=== PATIENT | male | born 1945 | race Caucasian/White ===

== ENCOUNTER 2018-07-24 15:13 | Emergency (ER) | payer SELFPAY ==
[~2018-07-24] VITALS: Ht 185.4 cm; Wt 136.1 kg
[2018-07-24 15:49] LABS: BASOPHILS # (AUTO) 0.1 K/uL (0.0-8.0); BASOPHILS % (AUTO) 1.1 % (0.0-2.0); EOSINOPHILS # (AUTO) 0.4 K/uL (0.0-0.7); EOSINOPHILS % (AUTO) 5.1 % (0.0-7.0); HEMATOCRIT 27.1 % (36.7-47.1); HEMOGLOBIN 8.5 g/dL (12.5-16.3); LYMPHOCYTES % (AUTO) 11.2 % (20.5-51.5); MEAN CORPUSCULAR HEMOGLOBIN 22.8 uug (23.8-33.4); MEAN CORPUSCULAR HGB CONC 31 g/dL (32.5-36.3); MEAN CORPUSCULAR VOLUME 72.5 fL (73.0-96.2); MONOCYTES # (AUTO) 0.5 K/uL (2.0-10.0); MONOCYTES % (AUTO) 5.6 % (0.0-11.0); NEUTROPHILS # (AUTO) 6.8 K/uL (1.8-8.9); PLATELET COUNT (AUTO) 442 K/uL (152-348); RED BLOOD CELL COUNT(AUTO) 3.73 MIL/uL (4.06-5.63); WHITE BLOOD COUNT (AUTO) 8.8 K/uL (3.6-10.2)
[2018-07-24 15:57] LABS: CREATININE 1.3 mg/dL (0.6-1.3); POTASSIUM 3.6 mmol/L (3.5-5.1)
[2018-07-24 16:02] LABS: BILIRUBIN,DIRECT 0.1 mg/dL (0.0-0.2); BILIRUBIN,TOTAL 0.9 mg/dL (0.2-1.0); TOTAL PROTEIN, SERUM 7.5 g/dL (6.4-8.2)
[2018-07-24] MEDS ORDERED: PANTOPRAZOLE SODIUM IV 80 MG in IV DEXTROSE 5% 500 ML IV ONE (16:30)
[2018-07-24] MEDS ORDERED: PANTOPRAZOLE SODIUM IV 80 MG in IV DEXTROSE 5% 100 ML IV ONE (16:30)
[2018-07-24] MEDS ORDERED: PANTOPRAZOLE SODIUM 40 MG VIAL ONE (16:33)
--- NOTE | 2018-07-24 16:41 | NUR ---
Patient does not wish to proceed with medical care recommended by ( ADILSON ). Patient given information related to possible complications, up to and including , which could occur as a result of leaving the hospital at this time. Patient verbalizes understanding of risks involved due to leaving against medical advice. Patient has signed AMA form.
== END 2018-07-24 16:46 | disposition left against medical advice (07) ==
LOC: ER 15:14
DX: K92.2 Gastrointestinal hemorrhage, unspecified (principal); R55 Syncope and collapse; D64.9 Anemia, unspecified
CPT/HCPCS: 36415; 70030-TC; 71045; 85025; 93005; 93307; A4663; C9113

== ENCOUNTER 2020-04-25 16:48 | Inpatient (IN) | payer MEDICAID, OTHER ==
[~2020-04-25] VITALS: Ht 185.4 cm; Wt 135.7 kg
[2020-04-25] MEDS ORDERED: ACETAMINOPHEN ES 500 MG TABLET PO ONE ×2 (17:15→19:45)
[2020-04-25] MEDS ORDERED: IBUPROFEN 800 MG TABLET PO ONE (17:15)
[2020-04-25] MEDS ORDERED: VANCOMYCIN IV 2,000 MG in IV DEXTROSE 5% 250 ML IV ONE (17:15)
[2020-04-25] MEDS ORDERED: PIPERACILLIN SODIUM/TAZOBACTAM 3.375 G in IV DEXTROSE 5% 50 ML IV ONE (17:15)
--- NOTE | 2020-04-25 17:15 | NUR ---
Pt BIB [facility], c/o weakness and dizziness since yesterday, report pt slipped out of bed this AM, no trauma, but pt feels more weak currently. was able to stand on own when RA picked him up. Pt Hx of Colon Ca, receives chemo, and HTN. Pt c/o weakness and dizziness, A&O x 4. Pt denies CP, SOB, and n/v also denies coughing or feeling sick before yesterday, no other complaints, no distress noted.
[2020-04-25] MEDS ORDERED: LISI2.5T2 PO (17:17)
[2020-04-25] MEDS ORDERED: MAGN400C PO (17:17)
[2020-04-25] MEDS ORDERED: CLOTRIMAZOLE 1% CREAM 30 GM TUBE TOP SCH (17:30)
[2020-04-25 17:45] LABS: ABG HCO3 22.8 mmol/L; ABG PCO2 31.8 mmHg (35.0-45.0); ABG PH 7.474 (7.350-7.450); ABG PO2 71.5 mmHg (75.0-100.0); ABG SITE RIGHT RADIAL; ABG TOTAL HEMOGLOBIN 12.7 G/dL (13.5-18.0); MetHb 0.1 % (0.0-1.5); VENT MODE Nasal Cannula
[2020-04-25] MEDS ORDERED: IBUPROFEN 800 MG TABLET ONE (18:06)
[2020-04-25] MEDS ORDERED: ACETAMINOPHEN ES 500 MG TABLET ONE (18:06)
[2020-04-25] MEDS ORDERED: VANCOMYCIN IV 400 ML ONE (18:07)
[2020-04-25] MEDS ORDERED: PIPERACILLIN/TAZOBACTAM/D5W 50 ML IV ONE (18:07)
[2020-04-25] MEDS ORDERED: levoFLOXacin 750 MG/D5W 150 ML PIGGYBACK IV ONE (18:15)
[2020-04-25 18:17] LABS: CREATININE 1.3 mg/dL (0.6-1.3); POTASSIUM 3.8 mmol/L (3.5-5.1)
[2020-04-25 18:18] LABS: BASOPHILS % (AUTO) 0.1 % (0.0-2.0); EOSINOPHILS % (AUTO) 0.2 % (0.0-7.0); HEMATOCRIT 37.2 % (36.7-47.1); HEMOGLOBIN 12.3 g/dL (12.5-16.3); LYMPHOCYTES # (AUTO) 0.2 K/uL (20.0-40.0); LYMPHOCYTES % (AUTO) 1.3 % (20.5-51.5); MEAN CORPUSCULAR HEMOGLOBIN 32.2 uug (23.8-33.4); MEAN CORPUSCULAR HGB CONC 33 g/dL (32.5-36.3); MEAN CORPUSCULAR VOLUME 97.3 fL (73.0-96.2); MONOCYTES # (AUTO) 0.2 K/uL (2.0-10.0); MONOCYTES % (AUTO) 1.4 % (0.0-11.0); NEUTROPHILS # (AUTO) 13.8 K/uL (1.8-8.9); PLATELET COUNT (AUTO) 272 K/uL (152-348); RED BLOOD CELL COUNT(AUTO) 3.82 MIL/uL (4.06-5.63); WHITE BLOOD COUNT (AUTO) 14.3 K/uL (3.6-10.2)
[2020-04-25 18:31] LABS: THYROID STIMULATING HORMONE 1.344 mIU/mL (0.358-3.740)
[2020-04-25 18:34] LABS: BILIRUBIN,DIRECT 0.3 mg/dL (0.0-0.2); BILIRUBIN,TOTAL 1.9 mg/dL (0.2-1.0); MAGNESIUM 1.6 mg/dL (1.8-2.4); PHOSPHOROUS 1.5 mg/dL (2.5-4.9); TOTAL PROTEIN, SERUM 7.3 g/dL (6.4-8.2)
[2020-04-25 18:35] LABS: BILIRUBIN,DIRECT 0.3 mg/dL (0.0-0.2); BILIRUBIN,TOTAL 1.8 mg/dL (0.2-1.0); TOTAL PROTEIN, SERUM 7.4 g/dL (6.4-8.2)
--- NOTE | 2020-04-25 19:15 | NUR ---
In and out cath not necessary. pt urinated in urinal
[2020-04-25 19:36] LABS: *BILIRUBIN,URIN NEGATIVE (NEGATIVE); *BLOOD, URINE 2+ (NEGATIVE); *CLARITY,URINE SLIGHTLY CLOUDY (CLEAR); *COLOR,URINE YELLOW (YELLOW); *KETONES,URINE TRACE (NEGATIVE); LEUKOCYTE ESTERASE ,URINE TRACE (NEGATIVE); NITRITE, URINE NEGATIVE (NEGATIVE); PH,URINE 8.5 (5.0-8.0); UGLUCOSE NEGATIVE (NEGATIVE)
[2020-04-25 19:48] LABS: RBC,URINE 20-50 /HPF (0-3)
[2020-04-25 19:49] LABS: BACTERIA,URINE NONE SEEN /HPF (NONE SEEN); RED BLOOD CELL CASTS,URINE FEW /LPF (NONE SEEN); SQUAMOUS EPITHELIAL CELL,UR FEW /HPF (NONE SEEN)
[2020-04-25] MEDS ORDERED: levoFLOXacin 750MG/D5W 150 ML IV ONE (19:55)
[2020-04-25] MEDS ORDERED: IV NORMAL SALINE 500 ML IV ONE ×2 (20:00→22:15)
[2020-04-25] MEDS ORDERED: KETOCONAZOLE 2% TOP (20:13)
[2020-04-25] MEDS ORDERED: TBO-480S SQ (20:13)
[2020-04-25] MEDS ORDERED: triamcinolon TOP (20:13)
[2020-04-25] MEDS ORDERED: LISI10TA5 PO (20:13)
--- NOTE | 2020-04-25 20:44 | NUR ---
Dr. Hernandez on panel call with Rose Mary Gil NP
[2020-04-25] MEDS ORDERED: NEUTRA PHOS PACKET PO ONE (21:00)
[2020-04-25] MEDS ORDERED: ACETAMINOPHEN 325 MG TABLET PO PRN (21:00)
--- NOTE | 2020-04-25 21:14 | NUR ---
Received call from Patient's son, left phone number .
[2020-04-25] MEDS ORDERED: IV NORMAL SALINE 250 ML IV ONE (21:40)
[2020-04-25] MEDS ORDERED: IOHEXOL 350 100 ML INFUS..BTL ONE (21:40)
[2020-04-25] MEDS ORDERED: SWABABLE VALVE TRANSFER SET EA MC ONE (21:40)
--- NOTE | 2020-04-25 21:51 | NUR ---
pt out of ER for CT
--- NOTE | 2020-04-25 21:51 | NUR ---
report given to CAROLINA West
--- NOTE | 2020-04-25 22:20 | NUR ---
pt back from CT
--- NOTE | 2020-04-25 23:15 | NUR ---
Pt. admitted to [facility] , under care of HEMANT Gil Belongs List completed. All belongings with pt aa/ox4. able to speak in complete sentences no s/s of distress transported pt via gurney
[2020-04-25 23:34] VITALS: BP 89/48
--- NOTE | 2020-04-25 23:34 | NUR ---
ADMITTED FROM ER VIA [facility] W/ ADM. DX. OF SEVERE SEPSIS. PT IS ALERT & ORIENTED X4. HEP LOCK INTACT ON LAC. IVF INFUSING ON R HAND. HEP. LOCK INTACT & PATENT ON RENÉE. C-SCOPE SR W/ FREQ. PVCS. REPOSITIONED W/ HOB ELEVATED.
[2020-04-26] MEDS: IV NS 1000 ML 1,000 ML IV PRN ×2 (00:08→19:59)
[2020-04-26] MEDS: MAGNESIUM SULFATE/D5W 100 ML IV SCH ×2 (00:14→01:17)
[2020-04-26] MEDS ORDERED: PIPERACILLIN SODIUM/TAZO 3.375 GM VIAL ONE (01:00)
[2020-04-26] MEDS ORDERED: NEUTRA PHOS PACKET ONE ×2 (01:15→01:22)
[2020-04-26] MEDS ORDERED: PIPERACILLIN SODIUM/TAZOBACTAM 3.375 G in IV DEXTROSE 5% 50 ML IV SCH ×2 (02:00→10:00)
--- NOTE | 2020-04-26 03:00 | NUR ---
INSERTED LEWIS FR. # 16 W/O DIFFICULTY W/ CLEAR RAMILA URINE.
[2020-04-26 04:11] VITALS: BP 112/67
[2020-04-26 04:44] LABS: BASOPHILS % (AUTO) 0.1 % (0.0-2.0); HEMATOCRIT 33.5 % (36.7-47.1); HEMOGLOBIN 11.3 g/dL (12.5-16.3); LYMPHOCYTES # (AUTO) 0.4 K/uL (20.0-40.0); LYMPHOCYTES % (AUTO) 1.4 % (20.5-51.5); MEAN CORPUSCULAR HEMOGLOBIN 32.8 uug (23.8-33.4); MEAN CORPUSCULAR HGB CONC 34 g/dL (32.5-36.3); MEAN CORPUSCULAR VOLUME 96.9 fL (73.0-96.2); MONOCYTES # (AUTO) 1.1 K/uL (2.0-10.0); MONOCYTES % (AUTO) 4.6 % (0.0-11.0); NEUTROPHILS # (AUTO) 23.5 K/uL (1.8-8.9); NEUTROPHILS % (AUTO) 93.9 % (38.5-71.5); PLATELET COUNT (AUTO) 225 K/uL (152-348); RED BLOOD CELL COUNT(AUTO) 3.46 MIL/uL (4.06-5.63)
[2020-04-26 04:46] LABS: CARBON DIOXIDE 24 mmol/L (21-32); CHLORIDE 104 mmol/L (98-107); CREATININE 1.7 mg/dL (0.6-1.3); GLUCOSE 126 mg/dL (74-106); POTASSIUM 4.1 mmol/L (3.5-5.1); UREA NITROGEN, BLOOD 23 mg/dL (7-18)
[2020-04-26 04:53] LABS: ALANINE AMINOTRANSFERASE 8 U/L (16-63); ALKALINE PHOSPHATASE 95 U/L (50-136); ASPARTATE AMINOTRANSFERASE 21 U/L (15-37); BILIRUBIN,DIRECT 0.2 mg/dL (0.0-0.2); BILIRUBIN,TOTAL 1.9 mg/dL (0.2-1.0); CHOLESTEROL 87 mg/dL (<200); HDL CHOLESTEROL 46 mg/dL (40-60); MAGNESIUM 2.2 mg/dL (1.8-2.4); PHOSPHOROUS 2.8 mg/dL (2.5-4.9); TOTAL PROTEIN, SERUM 6.2 g/dL (6.4-8.2); TRIGLYCERIDES 34 MG/DL (30-150)
[2020-04-26 05:00] LABS: THYROID STIMULATING HORMONE 0.864 mIU/mL (0.358-3.740)
--- NOTE | 2020-04-26 05:30 | NUR ---
HAD LARGE SOFT BROWNISH BM. CLEANED & REPOSITIONED W/ HOB ELEVATED.
[2020-04-26] MEDS ORDERED: Z GUARD REMEDY PASTE 57 GM TUBE TOP PRN (05:45)
[2020-04-26] MEDS: ONDANSETRON 4 MG/2 ML VIAL IV PRN (07:10)
[2020-04-26] MEDS: PIPERACILLIN SODIUM/TAZOBACTAM 3.375 G in IV DEXTROSE 5% 50 ML IV SCH ×4 (07:12→23:32)
[2020-04-26 08:00] VITALS: BP 100/49
[2020-04-26] MEDS: PANTOPRAZOLE SODIUM 40 MG VIAL IV SCH (08:27)
[2020-04-26] MEDS: MAGNESIUM OXIDE 400 MG TABLET PO SCH ×2 (08:28→17:41)
[2020-04-26] MEDS: Z GUARD REMEDY PASTE 57 GM TUBE TOP SCH ×2 (08:28→20:30)
[2020-04-26] MEDS: CLOTRIMAZOLE 1% CREAM 30 GM TUBE TOP SCH (08:31)
[2020-04-26 12:00] VITALS: BP 119/65
[2020-04-26] MEDS: VANCOMYCIN IV 1,250 MG in IV DEXTROSE 5% 250 ML IV SCH (12:35)
--- NOTE | 2020-04-26 14:04 | NUR ---
WOUND CARE CONSULT: PT REFUSED TO TURN FOR FULL SKIN ASSESSMENT OF BACK AND BUTTOCKS. LIMITED ASSESSMENT WAS DONE. PT PRESENTS WITH RED RASH TO ABDOMINAL FOLDS, PRESENT ON ADMISSION. SOME REDNESS NOTED TO [facility] WHICH PT STATES IS FROM HIS CHEMO TREATMENTS. RECOMMENDATIONS MADE FOR SKIN PROTECTION. DISCUSSED WITH NURSING STAFF. WILL SEE PRN. PATEL IN AGREEMENT WITH PLAN OF CARE. Addendum: 04/26/20 at 1413 by ZACK RASMAY RN PT AGREED TO TURN FOR FULL SKIN ASSESSMENT AND NOTED TO HAVE INNER BUTTOCKS RASH/REDNESS. RECOMMENDATIONS MADE AND DISCUSSED WITH NURSING STAFF.
[2020-04-26 16:00] VITALS: BP 100/63
[2020-04-26 18:18] LABS: *BILIRUBIN,URIN NEGATIVE (NEGATIVE); *BLOOD, URINE 3+ (NEGATIVE); *CLARITY,URINE SLIGHTLY CLOUDY (CLEAR); *COLOR,URINE YELLOW (YELLOW); *KETONES,URINE NEGATIVE (NEGATIVE); *UROBILINOGEN,URINE 0.2 E.U./dl (NORMAL); LEUKOCYTE ESTERASE ,URINE TRACE (NEGATIVE); NITRITE, URINE NEGATIVE (NEGATIVE); UGLUCOSE NEGATIVE (NEGATIVE)
[2020-04-26 18:24] LABS: *CREATININE,URINE 89.3 mg/dL (30-125); *URINE TOTAL PROTEIN RANDOM 61.1 mg/dL (<150/24HR)
[2020-04-26 19:22] LABS: BACTERIA,URINE NONE SEEN /HPF (NONE SEEN); SQUAMOUS EPITHELIAL CELL,UR FEW /HPF (NONE SEEN)
[2020-04-26 20:00] VITALS: BP 110/67
[2020-04-26] MEDS: ZOLPIDEM 5 MG TABLET PO PRN (20:29)
--- NOTE | 2020-04-26 21:00 | NUR ---
Pt refused to turn; offered a bed bath but declined.
[2020-04-26] MEDS: FLUCONAZOLE 100 MG TABLET PO SCH (21:18)
[2020-04-27] VITALS (7 sets, daily range): BP systolic 103–129; BP diastolic 57–86
[2020-04-27] MEDS: ZOLPIDEM 5 MG TABLET PO PRN ×3 (01:50→23:01)
[2020-04-27] MEDS ORDERED: ZOLPIDEM 5 MG TABLET ONE ×3 (01:50→23:00)
--- NOTE | 2020-04-27 03:42 | NUR ---
Pt refused to have bed bath and would rather have a shower when he gets home.
[2020-04-27] MEDS: PIPERACILLIN SODIUM/TAZOBACTAM 3.375 G in IV DEXTROSE 5% 50 ML IV SCH ×3 (05:06→17:01)
--- NOTE | 2020-04-27 05:30 | NUR ---
able to get pt have a bed bath; cleanse with NS; pat dry; apply mepilex; encouraged to turn q2h; pt has been refusing even with assistance. educated patient with the need for repositioning.
[2020-04-27] MEDS: VANCOMYCIN IV 1,250 MG in IV DEXTROSE 5% 250 ML IV SCH (06:02)
--- NOTE | 2020-04-27 06:55 | NUR ---
Pt is now Tele Status.
[2020-04-27] MEDS: ONDANSETRON 4 MG/2 ML VIAL IV PRN (07:00)
[2020-04-27 07:32] LABS: BASOPHILS # (AUTO) 0.1 K/uL (0.0-8.0); BASOPHILS % (AUTO) 0.7 % (0.0-2.0); EOSINOPHILS # (AUTO) 0.1 K/uL (0.0-0.7); EOSINOPHILS % (AUTO) 0.5 % (0.0-7.0); HEMATOCRIT 31.2 % (36.7-47.1); HEMOGLOBIN 10.6 g/dL (12.5-16.3); LYMPHOCYTES % (AUTO) 6.3 % (20.5-51.5); MEAN CORPUSCULAR HEMOGLOBIN 32.9 uug (23.8-33.4); MEAN CORPUSCULAR HGB CONC 34 g/dL (32.5-36.3); MEAN CORPUSCULAR VOLUME 96.8 fL (73.0-96.2); MONOCYTES % (AUTO) 6.5 % (0.0-11.0); NEUTROPHILS # (AUTO) 13.8 K/uL (1.8-8.9); PLATELET COUNT (AUTO) 207 K/uL (152-348); RED BLOOD CELL COUNT(AUTO) 3.23 MIL/uL (4.06-5.63)
--- NOTE | 2020-04-27 07:51 | NUR ---
Received pt, A/Ox4, responsive to verbal and tactile stimuli. Vanco IV currently infusing. Pt. denies pain or discomfort. Denies SOB or CP. On monitor, NSR. PIV patent and intact. Rt. chest Portacath non-accessed. F/C patent and intact with clear yellow urine output. Noted pt. with generalized rashes on chest and abdominal fold area. Safety measures in place. Call light and all frequently used items within pt. reach. Will continue to monitor accordingly. Addendum: 04/27/20 at 0950 by DELL FARIAS RN NSR on monitor with PVC. Addendum: 04/27/20 at 1532 by DELL FARIAS RN [facility] if pt. is anticipated to stay for more than 48 hours. Notified in-house CM (Marcos), and provided call back #. Addendum: 04/27/20 at 1858 by DELL FARIAS RN EOS Note: No significant acute changes during this shift. No changes in LOC, remain A/ox4. Pt. seen and assessed by Dr. Gibbs and Dr. Patel. All due medications given as ordered and tolerated well. Remain on IV ABX, no ASE noted. No s/sx of bleeding. Skin care rendered, no new skin condition noted. Turned and repositioned pt. as tolerated. Elevated BLE and floated aydee heels. F/C remain patent and intact with clear yellow urine output, secured with stat lock. VSS, pt. afebrile, denies chills. Pt. with x1 BM, brown and soft this shift, uses bedpan. On tele, NSR with PVCs. Tolerating diet well, denies GI symptoms. All pt. needs attended and met. Safety measures in place. Call light and all frequently used items within pt. reach. Will endorse to oncoming shift accordingly.
[2020-04-27 07:52] LABS: IRON, SERUM 9 ug/dL (50-175)
[2020-04-27 07:54] LABS: ALANINE AMINOTRANSFERASE 9 U/L (16-63); ALKALINE PHOSPHATASE 86 U/L (50-136); ASPARTATE AMINOTRANSFERASE 29 U/L (15-37); BILIRUBIN,TOTAL 1.4 mg/dL (0.2-1.0); CARBON DIOXIDE 28 mmol/L (21-32); CHLORIDE 105 mmol/L (98-107); CREATINE KINASE, TOTAL 734 U/L (39-308); CREATININE 1.5 mg/dL (0.6-1.3); GLUCOSE 89 mg/dL (74-106); PHOSPHOROUS 3.2 mg/dL (2.5-4.9); POTASSIUM 3.7 mmol/L (3.5-5.1); TOTAL PROTEIN, SERUM 5.9 g/dL (6.4-8.2); UREA NITROGEN, BLOOD 21 mg/dL (7-18)
[2020-04-27 08:19] LABS: FERRITIN 203 ng/mL (26-388)
[2020-04-27] MEDS: MAGNESIUM OXIDE 400 MG TABLET PO SCH ×2 (08:49→16:58)
[2020-04-27] MEDS: PANTOPRAZOLE SODIUM 40 MG VIAL IV SCH (08:49)
[2020-04-27] MEDS: CLOTRIMAZOLE 1% CREAM 30 GM TUBE TOP SCH (08:52)
[2020-04-27] MEDS: Z GUARD REMEDY PASTE 57 GM TUBE TOP SCH ×2 (08:54→20:47)
[2020-04-27] MEDS: IV NS 1000 ML 1,000 ML IV PRN (18:47)
--- NOTE | 2020-04-27 20:00 | NUR ---
RECEIVED PT AWAKE, ALERT & ORIENTED X4. ON RM AIR W/ O2 SAT OF 98%. IVF NS @ 50 CC/HR ON R HAND.REPOSITIONED IN BED W/ HOB ELEVATED. NOT IN ANY DISTRESS.
[2020-04-27] MEDS: FLUCONAZOLE 100 MG TABLET PO SCH (20:46)
--- NOTE | 2020-04-27 20:46 | NUR ---
PT REQUESTED A SLEEPING PILL, AMBIEN 10 MG GIVEN PO.
[2020-04-27] MEDS ORDERED: CEFTRIAXONE /D5W 50ML IVPB **ER PYXIS IV ONE (20:59)
[2020-04-27] MEDS ORDERED: CEFTRIAXONE 1 G in IV DEXTROSE 5% 50 ML IV SCH (21:00)
--- NOTE | 2020-04-27 23:01 | NUR ---
REPEATED AMBIEN 10 MG PO ORDERED. REPOSITIONED W/ HOB ELEVATED.
[2020-04-28] VITALS (7 sets, daily range): BP systolic 99–138; BP diastolic 47–78
--- NOTE | 2020-04-28 05:00 | NUR ---
AM CARE DONE. PT. WANTS TO STAY ON HIS BACK. NOT IN ANY DISTRESS.
[2020-04-28 05:06] LABS: BASOPHILS % (AUTO) 0.4 % (0.0-2.0); EOSINOPHILS # (AUTO) 0.1 K/uL (0.0-0.7); EOSINOPHILS % (AUTO) 1.6 % (0.0-7.0); HEMATOCRIT 32.6 % (36.7-47.1); HEMOGLOBIN 11.2 g/dL (12.5-16.3); LYMPHOCYTES # (AUTO) 1.2 K/uL (20.0-40.0); LYMPHOCYTES % (AUTO) 13.6 % (20.5-51.5); MEAN CORPUSCULAR HEMOGLOBIN 33.2 uug (23.8-33.4); MEAN CORPUSCULAR HGB CONC 34 g/dL (32.5-36.3); MEAN CORPUSCULAR VOLUME 96.6 fL (73.0-96.2); MONOCYTES # (AUTO) 0.7 K/uL (2.0-10.0); MONOCYTES % (AUTO) 7.5 % (0.0-11.0); NEUTROPHILS # (AUTO) 6.9 K/uL (1.8-8.9); NEUTROPHILS % (AUTO) 76.9 % (38.5-71.5); PLATELET COUNT (AUTO) 212 K/uL (152-348); RED BLOOD CELL COUNT(AUTO) 3.37 MIL/uL (4.06-5.63)
[2020-04-28 05:10] LABS: CREATININE 1.2 mg/dL (0.6-1.3); POTASSIUM 3.5 mmol/L (3.5-5.1)
--- NOTE | 2020-04-28 07:15 | NUR ---
Received report from shift supervisor film processing nurse, patient in bed awake and alert, no distress noted at this time. Sinus rhythm on the monitor, room air saturation 97%. Bed in low position, side rails up x2. Edwards draining appropriately.
[2020-04-28 08:06] LABS: *IMMUNOGLOBULIN G, SERUM 944 mg/dL (603-1613); IMMUNOGLOBULIN A, SERUM 278 mg/dL (61-437); IMMUNOGLOBULIN M, SERUM 225 mg/dL (15-143)
[2020-04-28] MEDS: MAGNESIUM OXIDE 400 MG TABLET PO SCH ×2 (08:08→17:11)
[2020-04-28] MEDS: PANTOPRAZOLE SODIUM 40 MG VIAL IV SCH (08:08)
[2020-04-28] MEDS: CLOTRIMAZOLE 1% CREAM 30 GM TUBE TOP SCH (08:30)
[2020-04-28] MEDS: Z GUARD REMEDY PASTE 57 GM TUBE TOP SCH ×2 (08:30→21:09)
[2020-04-28 08:49] LABS: MAGNESIUM 1.7 mg/dL (1.8-2.4); PHOSPHOROUS 2.7 mg/dL (2.5-4.9)
--- NOTE | 2020-04-28 09:20 | NUR ---
Report given to CAROLINA Rock. Patient continues to be sinus rhythm with PVC's on the monitor, Room air saturation of 98%, BP WNL. Patient able to tolerate breakfast and able to communicate needs. Bed in low position, side rails up x2.
[2020-04-28] MEDS: MAGNESIUM SULFATE/D5W 100 ML IV SCH ×2 (09:45→11:22)
--- NOTE | 2020-04-28 10:25 | NUR ---
Patient picked up by 3rd floor charge nurse and DIE INSPECTOR. All belongings accounted for.
--- NOTE | 2020-04-28 10:30 | NUR ---
Transferred from CCU to 303 via bed awake AOx4, on RA with no SOB or distress noted at this time. Isabel cath for chemotherapy on RU chest noted. IV on right hand 22g infusing Mg. Left AC 20g flushed and patent. On tele SR with PVC and PAC. Cleaned and changed pt. Applied Lotremin on abdominal fold and sacrum. Oriented to room and unit policy, verbalized understanding. Belongings placed at bedside. Bed locked in lowest position with siderails 2x up. Call light and phone within reach. Will monitor
[2020-04-28 15:12] LABS: A/G RATIO 0.8 (0.7-1.7); ALBUMIN 2.3 g/dL (2.9-4.4); ALPHA-1-GLOBULIN 0.4 g/dL (0.0-0.4); ALPHA-2-GLOBULIN 0.7 g/dL (0.4-1.0); BETA GLOBULIN 0.8 g/dL (0.7-1.3); GLOBULIN, TOTAL 2.9 g/dL (2.2-3.9); M-SPIKE Not Observed g/dL (Not Observed)
--- NOTE | 2020-04-28 19:25 | NUR ---
Received patient sitting on wheelchair, alert and awake. Patient denies any acute distress or pain at this time. Vitals stable, on room air saturating WNL. Patient is afebrile. RH and LAC IV is intact and patent. Patient on carr and draining well. Safety measures in place. Bed low and locked in position. Belongings and call light within reach. Will continue with the plan of care.
[2020-04-28] MEDS: FLUCONAZOLE 100 MG TABLET PO SCH (21:09)
[2020-04-28] MEDS: AMOXIcillin 500 MG CAPSULE PO SCH (21:09)
[2020-04-28] MEDS: ZOLPIDEM 5 MG TABLET PO PRN (22:43)
[2020-04-29 00:24] VITALS: BP 157/77
[2020-04-29 04:35] VITALS: BP 156/85
[2020-04-29] MEDS: AMOXIcillin 500 MG CAPSULE PO SCH ×2 (06:26→15:37)
[2020-04-29 06:32] LABS: CREATININE 1.1 mg/dL (0.6-1.3); POTASSIUM 3.6 mmol/L (3.5-5.1)
--- NOTE | 2020-04-29 06:45 | NUR ---
Patient slept throughout the night. Patient is awake and denies any acute distress or pain at this time. Pt is SR with PVC and PAC 65 on tele monitor. Vitals stable. Edwards is intact and draining clear yellow urine. Prescribed medications given, pt tolerated. Comfort care and needs attended. Fall precaution maintained. Safety measures in place. Will endorse to the oncoming nurse accordingly.
[2020-04-29] MEDS ORDERED: PANTOPRAZOLE SODIUM 40 MG TABLET.DR PO SCH (07:00)
--- NOTE | 2020-04-29 08:00 | NUR ---
received pt. resting in chair eating breakfast alert oriented x4. pt. denies pain/ discomfort. pt. denies sob/ difficulty breathing. IV in R hand 20 gauge intact patent saline lock. L AC 20 gauge intact patent saline lock. pt. on room air saturating well. safety measures in place. call light within reach. will continue to monitor pt.
[2020-04-29] MEDS: MAGNESIUM OXIDE 400 MG TABLET PO SCH (08:05)
[2020-04-29] MEDS: Z GUARD REMEDY PASTE 57 GM TUBE TOP SCH (08:06)
[2020-04-29] MEDS: CLOTRIMAZOLE 1% CREAM 30 GM TUBE TOP SCH (08:06)
[2020-04-29] MEDS ORDERED: CEPH-570 PO (09:32)
[2020-04-29] MEDS: MAGNESIUM SULFATE/D5W 100 ML IV SCH ×2 (09:50→11:18)
[2020-04-29 12:00] VITALS: BP 148/86
[2020-04-29] MEDS ORDERED: SOD FERRIC GLUC COMPLX/SUCROSE 125 MG in IV NORMAL SALINE 100 ML IV SCH (14:00)
[2020-04-29 15:29] VITALS: BP 159/87
--- NOTE | 2020-04-29 16:05 | NUR ---
pt. discharged home. both IVs removed. ID band removed. carr catheter removed. pt. in stable condition. all belongings with pt. pt. signed all paperwork. pt. wheeled down by RADHA
== END 2020-04-29 16:00 | disposition home health service (06) | DRG 871 ==
LOC: ER 16:50 → TELE 22:33 → DOU 22:33 → UNDOADMIN 22:33 → CCU 04-26 00:03 → TELE3 04-28 10:45
PROVIDERS: ADMIT Registered Nurse; ATTEND Internal Medicine
DX: A41.9 Sepsis, unspecified organism (principal); J96.01 Acute respiratory failure with hypoxia; E43 Unspecified severe protein-calorie malnutrition; G92 Toxic encephalopathy; N17.0 Acute kidney failure with tubular necrosis; D68.69 Other thrombophilia; E87.2 Acidosis; N39.0 Urinary tract infection, site not specified; L03.116 Cellulitis of left lower limb; E66.2 Morbid (severe) obesity with alveolar hypoventilation; C19 Malignant neoplasm of rectosigmoid junction; R65.20 Severe sepsis without septic shock; E83.39 Other disorders of phosphorus metabolism; E83.42 Hypomagnesemia; Z86.718 Personal history of other venous thrombosis and embolism; D53.9 Nutritional anemia, unspecified; Z92.21 Personal history of antineoplastic chemotherapy; B36.8 Other specified superficial mycoses; R53.1 Weakness; Z68.39 Body mass index [BMI] 39.0-39.9, adult; I10 Essential (primary) hypertension; B95.2 Enterococcus as the cause of diseases classified elsewhere
CPT/HCPCS: 36415; 36600; 51702; 70030-TC; 71045; 71275; 76770; 82784; 83550; 83605; 83615; 83690; 83735; 83970; 84100; 84155; 84156; 84165; 84300; 84443; 85025; 85730; 86140; 86334; 87040; 87077; 87086; 87400; 93005; 93307; A9150; C1758; C9113; G0378; J0696; J1956; J2405; J2543; J2916; J3370; J3475; J3490; J7030; J7040; J7050; J7060; Q9967